=== PATIENT | female | born 1985 | race Hispanic/Latino ===

== ENCOUNTER 2021-05-04 21:14 | Emergency (ER) | payer SELFPAY ==
[2021-05-04 21:41] VITALS: BP 128/74
--- NOTE | 2021-05-04 22:00 | Emergency Department Report ---
- General Chief complaint: Skin Rash Stated complaint: RASH Time Seen by Provider: 05/04/21 21:56 Source: patient Mode of arrival: Ambulatory Limitations: No Limitations - History of Present Illness Initial comments: Patient is a 35-year-old female presents emergency with complaints of a rash underneath her right nostril that began a couple days ago. She states she is not sure if the mask is rubbing it. She states that she has been rubbing it and making it more irritated. She states that she has been crusting. She denies a rash anywhere else. She denies any fever, nausea, vomiting, diarrhea, any other symptoms. Past medical history of asthma, diabetes. She has an allergy to penicillin, iodine, zolpidem. - Related Data Previous Rx's Medication Instructions Recorded Last Taken Type Mupirocin [Bactroban 2% OINT] 1 applic TP TID #1 tube 05/04/21 Unknown Rx Allergies Allergy/AdvReac Type Severity Reaction Status Date / Time iodine Allergy Unknown Verified 05/04/21 21:37 Penicillins Allergy Unknown Verified 05/04/21 21:37 zolpidem [From Ambien] Allergy Unknown Verified 05/04/21 21:37 Abscess Boil HPI - HPI Chief Complaint: Skin Rash Stated Complaint: RASH Time Seen by Provider: 05/04/21 21:56 Home Medications: Previous Rx's Medication Instructions Recorded Last Taken Type Mupirocin [Bactroban 2% OINT] 1 applic TP TID #1 tube 05/04/21 Unknown Rx Allergies/Adverse Reactions: Allergies Allergy/AdvReac Type Severity Reaction Status Date / Time iodine Allergy Unknown Verified 05/04/21 21:37 Penicillins Allergy Unknown Verified 05/04/21 21:37 zolpidem [From Ambien] Allergy Unknown Verified 05/04/21 21:37 ED Review of Systems ROS: Stated complaint: RASH Other details as noted in HPI Comment: All other systems reviewed and negative ED Past Medical Hx - Past Medical History Previous Medical History?: Yes Hx Diabetes: Yes Hx of Cancer: Yes (breast and uterine) Hx Asthma: Yes - Surgical History Past Surgical History?: Yes - Social History Smoking Status: Never Smoker Substance Use Type: None - Medications Home Medications: Home Medications Medication Instructions Recorded Confirmed Last Taken Type Mupirocin [Bactroban 2% OINT] 1 applic TP TID #1 tube 05/04/21 Unknown Rx ED Physical Exam - General Limitations: No Limitations General appearance: alert, in no apparent distress - Head Head exam: Present: atraumatic, normocephalic - Eye Eye exam: Present: normal appearance - ENT ENT exam: Present: mucous membranes moist, other (there is scabbing with crusting present at the opening of the right naris and just inferior, no induration, no pustules, no necrosis ) - Respiratory Respiratory exam: Absent: respiratory distress, accessory muscle use - Neurological Exam Neurological exam: Present: alert, oriented X3 - Psychiatric Psychiatric exam: Present: normal affect, normal mood - Skin Skin exam: Present: warm, dry ED Course Vital Signs 05/04/21 21:38 Temperature 98.3 F Pulse Rate 95 H Respiratory 18 Rate Blood Pressure 128/74 O2 Sat by Pulse 97 Oximetry ED Medical Decision Making - Medical Decision Making Patient is a 35-year-old female presents emergency with complaints of a rash underneath her right nostril that began a couple days ago. She states she is not sure if the mask is rubbing it. She states that she has been rubbing it and making it more irritated. She states that she has been crusting. She denies a rash anywhere else. She denies any fever, nausea, vomiting, diarrhea, any other symptoms. Past medical history of asthma, diabetes. She has an allergy to penicillin, iodine, zolpidem. Vitals are normal. On exam:there is scabbing with crusting present at the opening of the right naris and just inferior, no induration, no pustules, no necrosis. Examination appears likely consistent with impetigo. No surrounding cellulitis. Patient given prescription for mupirocin. Advised patient Please use medication as prescribed. Please stop scratching. Follow-up the primary care doctor. Return to emergency room for any new or worsening symptoms. Critical care attestation.: If time is entered above; I have spent that time in minutes in the direct care of this critically ill patient, excluding procedure time. ED Disposition Clinical Impression: Rash Disposition: 01 HOME / SELF CARE / HOMELESS Is pt being admited?: No Does the pt Need Aspirin: No Condition: Stable Instructions: Impetigo, Adult Additional Instructions: Please use medication as prescribed. Please stop scratching. Follow-up the primary care doctor. Return to emergency room for any new or worsening symptoms. Prescriptions: Mupirocin [Bactroban 2% OINT] 1 applic TP TID #1 tube Referrals: JADYN ROSADO MD [Staff Physician] - 2-3 Days [facility] [Provider Group] - 2-3 Days Time of Disposition: 21:59 Print Language: COMORAN
== END 2021-05-04 22:32 | disposition home or self-care (01) ==
LOC: ED 21:14
DX: R21 Rash and other nonspecific skin eruption (principal); E11.9 Type 2 diabetes mellitus without complications; J45.909 Unspecified asthma, uncomplicated; Z88.0 Allergy status to penicillin; Z88.6 Allergy status to analgesic agent; Z88.8 Allergy status to other drugs, medicaments and biological substances; Z79.899 Other long term (current) drug therapy
CPT/HCPCS: 99281

== ENCOUNTER 2021-10-31 00:35 | Emergency (ER) | payer MEDICAID, OTHER ==
[2021-10-31] MEDS ORDERED: IPRATROPIUM/ALBUTEROL SULFATE 3 ML AMPUL.NEB IH ONE (01:05)
[2021-10-31] MEDS ORDERED: methylPREDNISolone Sod Succinate 125 MG/2 ML INJ IM ONE (01:13)
--- NOTE | 2021-10-31 02:02 | XRay Report ---
CHEST 1 VIEW INDICATION / CLINICAL INFORMATION: DYSPNEA, ASTHMA. COMPARISON: None available. FINDINGS: SUPPORT DEVICES: None. HEART / MEDIASTINUM: No significant abnormality. LUNGS / PLEURA: Minimal hyperexpansion suggested. No focal consolidation. No pneumothorax. ADDITIONAL FINDINGS: Minimal dextroscoliosis apex at T7. IMPRESSION: 1. No focal consolidation. Hyperexpansion thought to be compatible with known history of asthma. Signer Name: Seven Andujar II, MD Signed: 10/31/2021 1:58 AM Workstation Name: [id number]
[2021-10-31 02:17] VITALS: BP 116/71
--- NOTE | 2021-10-31 02:20 | Emergency Department Report ---
ED Shortness of Breath HPI - General Chief Complaint: Adult Asthma Stated Complaint: ASTHMA ATTACK X3DAYS Source: patient Mode of arrival: Ambulatory Limitations: Physical Limitation - History of Present Illness Initial Comments: Patient is a 36-year-old female with a history of asthma and diabetes who presents to the ED with complaint of acute onset persistent shortness of breath, wheezing, chest tightness, nasal and sinus congestion and persistent dry cough for the last 1 week, worse in the last 3 days. Patient states that she has been using her albuterol inhaler at home with no relief. Patient denies dizziness, syncope, chest pain, nausea and vomiting, fever, chills, abdominal pain, diarrhea, dysuria, urinary frequency and urgency, headache, neck pain, ch gildardo in vision or sore throat. MD Complaint: shortness of breath, cough, "asthma attack" -: Sudden, week(s) (1) Severity: moderate Pain Scale: 5 Quality: other (Chest tightness) Consistency: intermittent Improves With: bronchodilators Worsens With: exertion, coughing Known History Of: asthma Context: recent URI, allergen exposure Associated Symptoms: cough Treatments Prior to Arrival: bronchodilator - Related Data Home Oxygen Therapy: No Home Medications Medication Instructions Recorded Confirmed Last Taken Fluticasone (Nf) [Flovent 220 2 puff IH BID 10/31/21 10/31/21 1 Day Ago MCG/PUFF HFA] ~10/30/21 Previous Rx's Medication Instructions Recorded Last Taken Type ALBUTEROL NEB's [Proventil 0.083% 3 ml IH Q6H PRN #75 ml 10/31/21 Unknown Rx NEBS] Albuterol Sulfate [Proair 1 - 2 puff IH Q4HR PRN #1 inh 10/31/21 Unknown Rx Digihaler] Benzonatate [Tessalon Perles] 100 mg PO Q8HR #30 cap 10/31/21 Unknown Rx Mometasone/Formoterol [Dulera 200 2 puff INHALATION Q12H PRN #1 inh 10/31/21 Unknown Rx Mcg-5 Mcg Inhaler] Montelukast [Singulair] 10 mg PO QPM #30 tablet 10/31/21 Unknown Rx Nebulizer Accessories [Adult 1 each MC Q6H PRN #1 each 10/31/21 Unknown Rx Aerosol Mask] Nebulizer Accessories [Mouthpiece] 1 each MC Q6H PRN #1 each 10/31/21 Unknown Rx Nebulizer Accessories [Sootheneb 1 each MC Q6H PRN #1 each 10/31/21 Unknown Rx [id number] Med Cup] Nebulizer and Compressor 1 each MC Q6H PRN #1 each 10/31/21 Unknown Rx [Compressor Nebulizer System] Prednisone [predniSONE 10 mg 10 mg PO .TAPER #1 tab 10/31/21 Unknown Rx (6-Day Pack, 21 Tabs)] Allergies Allergy/AdvReac Type Severity Reaction Status Date / Time iodine Allergy Hives Verified 10/31/21 01:11 morphine Allergy Angioedema Verified 10/31/21 01:11 Penicillins Allergy Shortness Verified 10/31/21 01:11 of Breath zolpidem [From Ambien] Allergy Hallucinati Verified 10/31/21 01:11 ons ED Review of Systems ROS: Stated complaint: ASTHMA ATTACK X3DAYS Other details as noted in HPI Constitutional: denies: chills, fever Eyes: denies: eye pain, eye discharge, vision change ENT: congestion. denies: ear pain, throat pain Respiratory: cough, shortness of breath, wheezing Cardiovascular: denies: chest pain, palpitations Endocrine: no symptoms reported Gastrointestinal: denies: abdominal pain, nausea, diarrhea Genitourinary: denies: urgency, dysuria, discharge Musculoskeletal: denies: back pain, joint swelling, arthralgia Skin: denies: rash, lesions Neurological: denies: headache, weakness, paresthesias Psychiatric: denies: anxiety, depression Hematological/Lymphatic: denies: easy bleeding, easy bruising ED Past Medical Hx - Past Medical History Hx Diabetes: Yes Hx Asthma: Yes - Social History Smoking Status: Never Smoker Substance Use Type: None - Medications Home Medications: Home Medications Medication Instructions Recorded Confirmed Last Taken Type ALBUTEROL NEB's [Proventil 0.083% 3 ml IH Q6H PRN #75 ml 10/31/21 Unknown Rx NEBS] Albuterol Sulfate [Proair 1 - 2 puff IH Q4HR PRN #1 inh 10/31/21 Unknown Rx Digihaler] Benzonatate [Tessalon Perles] 100 mg PO Q8HR #30 cap 10/31/21 Unknown Rx Fluticasone (Nf) [Flovent 220 2 puff IH BID 10/31/21 10/31/21 1 Day Ago History MCG/PUFF HFA] ~10/30/21 Mometasone/Formoterol [Dulera 200 2 puff INHALATION Q12H PRN #1 inh 10/31/21 Unknown Rx Mcg-5 Mcg Inhaler] Montelukast [Singulair] 10 mg PO QPM #30 tablet 10/31/21 Unknown Rx Nebulizer Accessories [Adult 1 each MC Q6H PRN #1 each 10/31/21 Unknown Rx Aerosol Mask] Nebulizer Accessories [Mouthpiece] 1 each MC Q6H PRN #1 each 10/31/21 Unknown Rx Nebulizer Accessories [Sootheneb 1 each MC Q6H PRN #1 each 10/31/21 Unknown Rx [id number] Med Cup] Nebulizer and Compressor 1 each MC Q6H PRN #1 each 10/31/21 Unknown Rx [Compressor Nebulizer System] Prednisone [predniSONE 10 mg 10 mg PO .TAPER #1 tab 10/31/21 Unknown Rx (6-Day Pack, 21 Tabs)] ED Physical Exam - General Limitations: Physical Limitation General appearance: alert, in no apparent distress - Head Head exam: Present: atraumatic, normocephalic, normal inspection - Eye Eye exam: Present: normal appearance, PERRL, EOMI Pupils: Present: normal accommodation - ENT ENT exam: Present: normal orophraynx, mucous membranes moist, TM's normal bilaterally, normal external ear exam, other (Grossly congested nasal passages) - Neck Neck exam: Present: normal inspection, full ROM. Absent: tenderness, lymphadenopathy - Respiratory Respiratory exam: Present: wheezes (Mildly diffuse coarse wheezes throughout). Absent: normal lung sounds bilaterally, respiratory distress, rales, rhonchi, chest wall tenderness, accessory muscle use, decreased breath sounds - Cardiovascular Cardiovascular Exam: Present: normal rhythm, tachycardia, normal heart sounds. Absent: systolic murmur, diastolic murmur, rubs, gallop - GI/Abdominal GI/Abdominal exam: Present: soft, normal bowel sounds. Absent: tenderness, guarding, rebound, hyperactive bowel sounds, hypoactive bowel sounds, organomegaly - Extremities Exam Extremities exam: Present: normal inspection, full ROM, normal capillary refill - Back Exam Back exam: Present: normal inspection, full ROM. Absent: tenderness, CVA tenderness (R), CVA tenderness (L), muscle spasm, paraspinal tenderness, vertebral tenderness - Neurological Exam Neurological exam: Present: alert, oriented X3, CN II-XII intact, normal gait, reflexes normal - Psychiatric Psychiatric exam: Present: normal affect, normal mood - Skin Skin exam: Present: warm, dry, intact, normal color. Absent: rash ED Medical Decision Making - Radiology Data Radiology results: report reviewed, image reviewed [facility] [address] [place] [address] XRay Report Signed Patient: CRISTINA THOMAS MR#: [id number] [birth year] : 1985 Acct:[id number] Age/Sex: 36 / F ADM Date: 10/31/21 Loc: ED Attending Dr: Ordering Physician: MARY LEVIN Date of Service: 10/31/21 Procedure(s): XR chest 1V ap Accession Number(s): [id number] cc: MARY LEVIN Fluoro Time In Minutes: CHEST 1 VIEW INDICATION / CLINICAL INFORMATION: DYSPNEA, ASTHMA. COMPARISON: None available. FINDINGS: SUPPORT DEVICES: None. HEART / MEDIASTINUM: No significant abnormality. LUNGS / PLEURA: Minimal hyperexpansion suggested. No focal consolidation. No pneumothorax. ADDITIONAL FINDINGS: Minimal dextroscoliosis apex at T7. IMPRESSION: 1. No focal consolidation. Hyperexpansion thought to be compatible with known history of asthma. Signer Name: Wes Wolf II, MD Signed: 10/31/2021 1:58 AM Workstation Name: [id number] Transcribed By: KIERA Dictated By: WES WOLF II, MD Electronically Authenticated By: WES WOLF II, MD Signed Date/Time: 10/31/21 015 DD/ 5 TD/TT: - Medical Decision Making This is a 36-year-old female with a history of asthma and diabetes who presents to the ED with complaint of acute onset persistent shortness of breath, wheezing, chest tightness, nasal and sinus congestion and persistent dry cough for the last 1 week, worse in the last 3 days. Patient states that she has been using her albuterol inhaler at home with no relief. In the ED, patient is alert and oriented x3 and is not in any distress. Patient is afebrile but tachycardic in triage having used her albuterol inhaler prior to arrival in the ED. Chest x-ray showed no acute cardiopulmonary abnormalities or pneumonitis. Patient was treated in the ED with DuoNeb and Solu-Medrol 125 mg intramuscular injection. On reevaluation, patient's wheezing resolved patient felt better, patient is hemodynamically stable with oxygen saturation of 100% on room air. Patient was discharged home on medications and advised to follow-up with her primary care physician in 3 to 5 days for reevaluation or return to the ED immediately if symptoms get worse. - Differential Diagnosis Asthma; bronchitis; pneumonia; URI; Critical care attestation.: If time is entered above; I have spent that time in minutes in the direct care of this critically ill patient, excluding procedure time. ED Disposition Clinical Impression: Acute bronchitis with asthma with acute exacerbation, Shortness of breath Disposition: 01 HOME / SELF CARE / HOMELESS Is pt being admited?: No Does the pt Need Aspirin: No Condition: Stable Instructions: Shortness of Breath, Adult, Guqm-wp-Hmtc, Cough, Adult, Ueci-fk-Htds, Acute Bronchitis, Adult, Pigg-uz-Ffzz, Asthma, Adult, Hxzw-as-Post Additional Instructions: Chest x-ray showed no acute cardiopulmonary abnormalities or pneumonitis. Therefore take medications with food, drink plenty of fluids and follow-up with your primary care physician in 3 to 5 days for reevaluation. Return to the ED immediately if symptoms get worse. Prescriptions: Nebulizer Accessories [Adult Aerosol Mask] 1 each MC Q6H PRN #1 each PRN Reason: Dyspnea Nebulizer and Compressor [Compressor Nebulizer System] 1 each MC Q6H PRN #1 each PRN Reason: Wheezing Mometasone/Formoterol [Dulera 200 Mcg-5 Mcg Inhaler] 2 puff INHALATION Q12H PRN #1 inh PRN Reason: Dyspnea Nebulizer Accessories [Mouthpiece] 1 each MC Q6H PRN #1 each PRN Reason: Dyspnea Prednisone [predniSONE 10 mg (6-Day Pack, 21 Tabs)] 10 mg PO .TAPER #1 tab Albuterol Sulfate [Proair Digihaler] 1 - 2 puff IH Q4HR PRN #1 inh PRN Reason: Dyspnea ALBUTEROL NEB's [Proventil 0.083% NEBS] 3 ml IH Q6H PRN #75 ml PRN Reason: Wheezing Montelukast [Singulair] 10 mg PO QPM #30 tablet Nebulizer Accessories [Sootheneb [id number] Med Cup] 1 each MC Q6H PRN #1 each PRN Reason: Dyspnea Benzonatate [Tessalon Perles] 100 mg PO Q8HR #30 cap Referrals: JADYN ROSADO MD [Staff Physician] - 3-5 Days Time of Disposition: 02:21 Print Language: ANGOLAN
== END 2021-10-31 03:23 | disposition home or self-care (01) ==
LOC: ED 00:35
DX: J45.901 Unspecified asthma with (acute) exacerbation (principal); E11.9 Type 2 diabetes mellitus without complications; Z79.899 Other long term (current) drug therapy
CPT/HCPCS: 71045; 94640; 96372; 99283; J2930; 94644

== ENCOUNTER 2021-11-03 00:15 | Emergency (ER) | payer SELFPAY ==
[2021-11-03 00:20] VITALS: BP 112/75
[2021-11-03] MEDS ORDERED: HYDROcodone/ACETAMINOPHEN 5-325 MG TAB PO STA (03:30)
--- NOTE | 2021-11-03 04:22 | XRay Report ---
CHEST 2 VIEWS INDICATION / CLINICAL INFORMATION: Right-sided chest pain.. COMPARISON: None available. FINDINGS: SUPPORT DEVICES: None. HEART / MEDIASTINUM: No significant abnormality. LUNGS / PLEURA: No significant pulmonary or pleural abnormality. No pneumothorax. ADDITIONAL FINDINGS: Stable mild dextroscoliosis. Minimal pectus deformity. IMPRESSION: 1. No active cardiopulmonary disease. Signer Name: Seven Andujar II, MD Signed: 11/03/2021 4:18 AM Workstation Name: [id number]
--- NOTE | 2021-11-03 04:31 | Emergency Department Report ---
Minor Respiratory - HPI Chief Complaint: Adult Asthma Stated Complaint: ASTHMA Time Seen by Provider: 11/03/21 03:29 Duration: 5 Days Pain Location: Chest Severity: moderate Minor Respiratory: Yes Cough, Yes Chest Pain, No Rhinorrhea, No Able to Tolerate Fluids, No Ear Pain, No Fever Other History: 36-year-old female smoker presents emerged part with complaint of 5-day history of productive cough with congestion and right rib pain of unknown etiology. Ports no fever, chills, sweats. No nausea, no vomiting ED Review of Systems ROS: Stated complaint: ASTHMA Other details as noted in HPI Comment: All other systems reviewed and negative ED Past Medical Hx - Past Medical History Hx Diabetes: Yes Hx Asthma: Yes - Social History Smoking Status: Never Smoker Substance Use Type: None - Medications Home Medications: Home Medications Medication Instructions Recorded Confirmed Last Taken Type ALBUTEROL NEB's [Proventil 0.083% 3 ml IH Q6H PRN #75 ml 10/31/21 Unknown Rx NEBS] Albuterol Sulfate [Proair 1 - 2 puff IH Q4HR PRN #1 inh 10/31/21 Unknown Rx Digihaler] Benzonatate [Tessalon Perles] 100 mg PO Q8HR #30 cap 10/31/21 Unknown Rx Fluticasone (Nf) [Flovent 220 2 puff IH BID 10/31/21 10/31/21 1 Day Ago History MCG/PUFF HFA] ~10/30/21 Mometasone/Formoterol [Dulera 200 2 puff INHALATION Q12H PRN #1 inh 10/31/21 Unknown Rx Mcg-5 Mcg Inhaler] Montelukast [Singulair] 10 mg PO QPM #30 tablet 10/31/21 Unknown Rx Nebulizer Accessories [Adult 1 each MC Q6H PRN #1 each 10/31/21 Unknown Rx Aerosol Mask] Nebulizer Accessories [Mouthpiece] 1 each MC Q6H PRN #1 each 10/31/21 Unknown Rx Nebulizer Accessories [Sootheneb 1 each MC Q6H PRN #1 each 10/31/21 Unknown Rx [id number] Med Cup] Nebulizer and Compressor 1 each MC Q6H PRN #1 each 10/31/21 Unknown Rx [Compressor Nebulizer System] Prednisone [predniSONE 10 mg 10 mg PO .TAPER #1 tab 03/07/22 Unknown Rx (6-Day Pack, 21 Tabs)] Albuterol Mdi (or & Nicu Only) 2 puff IH QID PRN #1 inhalation 11/03/21 Unknown Rx [ProAir HFA Inhaler] Montelukast [Singulair] 10 mg PO QPM #14 tablet 11/03/21 Unknown Rx predniSONE [Deltasone] 50 mg PO QDAY #5 tab 11/03/21 Unknown Rx Minor Respiratory Exam - Exam General: Vital signs noted. No distress. Alert and acting appropriately. HEENT: Yes Moist Mucous Membranes, No Pharyngeal Erythema, No Pharyngeal Exudates, No Rhinorrhea, No Conjuctival Injection, No Frontal Tenderness, No Maxillary Tenderness Ear: Neither TM Bulge, Neither TM Erythema, Neither EAC Pain, Neither EAC Discharge Neck: Yes Supple, No Adenopathy Lungs: Yes Good Air Exchange, Yes Ronchi, No Wheezes, No Stridor, No Cough, No Labored Respirations, No Retractions, No Use of Accessory Muscles, No Other Abnormal Lung Sounds Heart: Yes Regular, No Murmur Abdomen: Yes Normal Bowel Sounds, No Tenderness, No Peritoneal Signs Skin: No Rash, No Edema Neurologic: Alert and oriented, no deficits. Musculoskeletal: Unremarkable. ED Course Vital Signs 11/03/21 11/03/21 00:19 03:48 Temperature 98.3 F Pulse Rate 117 H Respiratory 16 16 Rate Blood Pressure 112/75 O2 Sat by Pulse 97 Oximetry ED Medical Decision Making - Radiology Data Radiology results: report reviewed Other Patient ID My Comment(s) Study Comments [facility] [address] [place] [address] XRay Report Signed Patient: CRISTINA THOMAS MR#: [id number] 08 : 1985 Acct:[id number] Age/Sex: 36 / F ADM Date: 11/03/21 Loc: ED Attending Dr: Ordering Physician: MARY RODRIGUEZ Date of Service: 11/03/21 Procedure(s): XR chest routine 2V Accession Number(s): [id number] cc: MARY RODRIGUEZ Fluoro Time In Minutes: CHEST 2 VIEWS INDICATION / CLINICAL INFORMATION: Right-sided chest pain.. COMPARISON: None available. FINDINGS: SUPPORT DEVICES: None. HEART / MEDIASTINUM: No significant abnormality. LUNGS / PLEURA: No significant pulmonary or pleural abnormality. No pneumothorax. ADDITIONAL FINDINGS: Stable mild dextroscoliosis. Minimal pectus deformity. IMPRESSION: 1. No active cardiopulmonary disease. Signer Name: Wes Wolf II, MD Signed: 11/03/2021 4:18 AM Workstation Name: [id number] Transcribed By: KIERA Dictated By: WES WOLF II, MD Electronically Authenticated By: WES WOLF II, MD Signed Date/Time: 11/03/21417 DD/ 2 TD/TT: - Medical Decision Making This patient presents with chest pain that is very unlikely angina or acute coronary syndrome. The emergency department evaluation has not identified any cause for suspicion that this chest pain has a cardiac etiology. Based on their history, EKG (which showed no evidence of ischemia or infarction) and imaging, in addition to the patient's physical exam, I see no evidence at this time for a malignant etiology for the patient's chest pain. There is no acute evidence for pulmonary embolus, acute myocardial infarction, pneumothorax, Boerhaeve syndrome, cardiac tamponade, thoracic artery dissection, or any other emergent c ardiac, pulmonary or aortic pathology. Given the low pre-test probability for cardiac etiology of chest pain and the absence of any sign of ischemia or infarction, discharge for outpatient follow-up and further evaluation is reasonable. I have explained to the patient that even though a cardiac problem is very unlikely, follow-up and further testing is required to reduce further the already small uncertainty that exists. Other life-threatening diagnoses have been considered. The patient understands the need to return immediately if their symptoms worsen or they develop any new symptoms, and not to engage in any significant exertional activity until follow-up is obtained. Critical care attestation.: If time is entered above; I have spent that time in minutes in the direct care of this critically ill patient, excluding procedure time. ED Disposition Clinical Impression: Chest pain, Asthma Disposition: HOME / SELF CARE / HOMELESS Is pt being admited?: No Does the pt Need Aspirin: No (sa) Condition: Stable Instructions: Nonspecific Chest Pain, Adult, Asthma (ED), Asthma, Adult Referrals: JADYN ROSADO MD [Primary Care Provider] - 3-5 Days
--- NOTE | 2021-11-04 09:14 | Electrocardiograph Report ---
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
== END 2021-11-03 05:09 | disposition home or self-care (01) ==
LOC: ED 00:15
DX: J45.909 Unspecified asthma, uncomplicated (principal); R07.9 Chest pain, unspecified; E11.9 Type 2 diabetes mellitus without complications
CPT/HCPCS: 71046; 93005; 99283

== ENCOUNTER 2021-11-15 20:19 | Emergency (ER) | payer MEDICAID ==
[2021-11-15 20:46] VITALS: BP 105/63
--- NOTE | 2021-11-16 01:44 | Emergency Department Report ---
ED Laceration HPI - HPI Chief Complaint: Chest Pain Stated Complaint: CHEST PAIN,SHOULDER/BACK/ARM PAIN Time Seen by Provider: 11/16/21 00:57 ED Review of Systems ROS: Stated complaint: CHEST PAIN,SHOULDER/BACK/ARM PAIN Other details as noted in HPI Comment: All other systems reviewed and negative ED Past Medical Hx - Past Medical History Hx Diabetes: Yes Hx Asthma: Yes - Social History Smoking Status: Never Smoker Substance Use Type: None - Medications Home Medications: Home Medications Medication Instructions Recorded Confirmed Last Taken Type ALBUTEROL NEB's [Proventil 0.083% 3 ml IH Q6H PRN #75 ml 10/31/21 Unknown Rx NEBS] Albuterol Sulfate [Proair 1 - 2 puff IH Q4HR PRN #1 inh 10/31/21 Unknown Rx Digihaler] Benzonatate [Tessalon Perles] 100 mg PO Q8HR #30 cap 10/31/21 Unknown Rx Fluticasone (Nf) [Flovent 220 2 puff IH BID 10/31/21 10/31/21 1 Day Ago History MCG/PUFF HFA] ~10/30/21 Mometasone/Formoterol [Dulera 200 2 puff INHALATION Q12H PRN #1 inh 10/31/21 Unknown Rx Mcg-5 Mcg Inhaler] Montelukast [Singulair] 10 mg PO QPM #30 tablet 10/31/21 Unknown Rx Nebulizer Accessories [Adult 1 each MC Q6H PRN #1 each 10/31/21 Unknown Rx Aerosol Mask] Nebulizer Accessories [Mouthpiece] 1 each MC Q6H PRN #1 each 10/31/21 Unknown Rx Nebulizer Accessories [Sootheneb 1 each MC Q6H PRN #1 each 10/31/21 Unknown Rx [id number] Med Cup] Nebulizer and Compressor 1 each MC Q6H PRN #1 each 10/31/21 Unknown Rx [Compressor Nebulizer System] Prednisone [predniSONE 10 mg 10 mg PO .TAPER #1 tab 10/31/21 Unknown Rx (6-Day Pack, 21 Tabs)] Albuterol Mdi (or & Nicu Only) 2 puff IH QID PRN #1 inhalation 11/03/21 Unknown Rx [ProAir HFA Inhaler] Montelukast [Singulair] 10 mg PO QPM #14 tablet 11/03/21 Unknown Rx predniSONE [Deltasone] 50 mg PO QDAY #5 tab 11/03/21 Unknown Rx Laceration Physical Exam - Exam General: Vital signs noted. No distress. Alert and acting appropriately. Full Body Front + Back: 1 - Less than 1 cm laceration to the left face lip region Laceration Exam: Yes Normal Distal CMS, No Foreign Body, No Exposed Tendon, Vessel, or Nerve, No Tendon Injury ED Course Vital Signs 11/15/21 20:45 Temperature 98.4 F Pulse Rate 89 Respiratory 18 Rate Blood Pressure 105/63 O2 Sat by Pulse 99 Oximetry Critical care attestation.: If time is entered above; I have spent that time in minutes in the direct care of this critically ill patient, excluding procedure time. ED Disposition Condition: Stable Referrals: PRIMARY CARE, [Primary Care Provider] - 3-5 Days
--- NOTE | 2021-11-16 03:10 | XRay Report ---
CHEST 2 VIEWS INDICATION / CLINICAL INFORMATION: Chest Pain. COMPARISON: 11/03/21. FINDINGS: SUPPORT DEVICES: None. HEART / MEDIASTINUM: The heart size and pulmonary vasculature are normal. The aorta is normal in evan theresa. LUNGS / PLEURA: No significant pulmonary or pleural abnormality. No pneumothorax. ADDITIONAL FINDINGS: There is mild thoracolumbar scoliosis. IMPRESSION: No acute abnormality or significant change. Signer Name: Prakash Najera MD Signed: 11/16/2021 3:06 AM Workstation Name: [id number]
[2021-11-16 04:15] LABS: Basophils # (Auto) 0.1 K/mm3 (0.0-0.1); Basophils % (Auto) 0.5 % (0.0-1.8); Eosinophils # (Auto) 0.2 K/mm3 (0.0-0.4); Eosinophils % (Auto) 1.4 % (0.0-4.3); Hematocrit 39.3 % (30.3-42.9); Hemoglobin 12.7 gm/dl (10.1-14.3); Lymphocytes # (Auto) 2.2 K/mm3 (1.2-5.4); Lymphocytes % (Auto) 19.4 % (13.4-35.0); Mean Corpuscular HGB Conc 32 % (30-34); Mean Corpuscular Volume 91 fl (79-97); Monocytes # (Auto) 0.9 K/mm3 (0.0-0.8); Monocytes % (Auto) 7.6 % (0.0-7.3); Platelet Count 168 K/mm3 (140-440); Red Blood Count 4.29 M/mm3 (3.65-5.03)
[2021-11-16 04:34] LABS: Alanine Aminotransferase 7 units/L (7-56); Albumin 4.1 g/dL (3.9-5); Blood Urea Nitrogen 5 mg/dL (7-17); Calcium 8.8 mg/dL (8.4-10.2); Hemolysis Index 5
[2021-11-16 04:45] LABS: BUN/Creatinine Ratio 10
--- NOTE | 2021-11-16 06:00 | Emergency Department Report ---
ED General Adult HPI - General Chief complaint: Chest Pain Stated complaint: CHEST PAIN,SHOULDER/BACK/ARM PAIN Time Seen by Provider: 11/16/21 00:57 Source: patient Mode of arrival: Ambulatory Limitations: No Limitations - History of Present Illness Initial comments: 36-year-old female presents emerge department complaining of a few day history of chest pain that radiates through to her back associated with tingling on her arms and occasional shortness of breath. She reports no hemoptysis symptoms hematochezia, no fever, chills, sweats. No nausea, no vomiting, no trauma. She reports no foreign travel, no swelling to her lower extremities she reports no diarrhea or constipation no known sick contacts. -: Gradual Location: chest Radiation: non-radiation Quality: dull, other (Chest pain really started out as a heavy pressure across the chest and then grew to aches and now sharp pain that radiates through to her back up and down the spine) Consistency: constant Improves with: none Worsens with: movement Associated Symptoms: chest pain. denies: loss of appetite, nausea/vomiting, shortness of breath Treatments Prior to Arrival: none - Related Data Home Medications Medication Instructions Recorded Confirmed Last Taken Fluticasone (Nf) [Flovent 220 2 puff IH BID 10/31/21 10/31/21 1 Day Ago MCG/PUFF HFA] ~10/30/21 Previous Rx's Medication Instructions Recorded Last Taken Type ALBUTEROL NEB's [Proventil 0.083% 3 ml IH Q6H PRN #75 ml 10/31/21 Unknown Rx NEBS] Albuterol Sulfate [Proair 1 - 2 puff IH Q4HR PRN #1 inh 10/31/21 Unknown Rx Digihaler] Benzonatate [Tessalon Perles] 100 mg PO Q8HR #30 cap 10/31/21 Unknown Rx Mometasone/Formoterol [Dulera 200 2 puff INHALATION Q12H PRN #1 inh 10/31/21 Unknown Rx Mcg-5 Mcg Inhaler] Montelukast [Singulair] 10 mg PO QPM #30 tablet 10/31/21 Unknown Rx Nebulizer Accessories [Adult 1 each MC Q6H PRN #1 each 10/31/21 Unknown Rx Aerosol Mask] Nebulizer Accessories [Mouthpiece] 1 each MC Q6H PRN #1 each 10/31/21 Unknown Rx Nebulizer Accessories [Sootheneb 1 each MC Q6H PRN #1 each 10/31/21 Unknown Rx [id number] Med Cup] Nebulizer and Compressor 1 each MC Q6H PRN #1 each 10/31/21 Unknown Rx [Compressor Nebulizer System] Prednisone [predniSONE 10 mg 10 mg PO .TAPER #1 tab 10/31/21 Unknown Rx (6-Day Pack, 21 Tabs)] Albuterol Mdi (or & Nicu Only) 2 puff IH QID PRN #1 inhalation 11/03/21 Unknown Rx [ProAir HFA Inhaler] Montelukast [Singulair] 10 mg PO QPM #14 tablet 11/03/21 Unknown Rx predniSONE [Deltasone] 50 mg PO QDAY #5 tab 11/03/21 Unknown Rx Allergies Allergy/AdvReac Type Severity Reaction Status Date / Time iodine Allergy Hives Verified 10/31/21 01:11 morphine Allergy Angioedema Verified 10/31/21 01:11 Penicillins Allergy Shortness Verified 10/31/21 01:11 of Breath zolpidem [From Ambien] Allergy Hallucinati Verified 10/31/21 01:11 ons ED Review of Systems ROS: Stated complaint: CHEST PAIN,SHOULDER/BACK/ARM PAIN Other details as noted in HPI Comment: All other systems reviewed and negative ED Past Medical Hx - Past Medical History Hx Diabetes: Yes Hx Asthma: Yes - Social History Smoking Status: Never Smoker Substance Use Type: None - Medications Home Medications: Home Medications Medication Instructions Recorded Confirmed Last Taken Type ALBUTEROL NEB's [Proventil 0.083% 3 ml IH Q6H PRN #75 ml 10/31/21 Unknown Rx NEBS] Albuterol Sulfate [Proair 1 - 2 puff IH Q4HR PRN #1 inh 10/31/21 Unknown Rx Digihaler] Benzonatate [Tessalon Perles] 100 mg PO Q8HR #30 cap 10/31/21 Unknown Rx Fluticasone (Nf) [Flovent 220 2 puff IH BID 10/31/21 10/31/21 1 Day Ago History MCG/PUFF HFA] ~10/30/21 Mometasone/Formoterol [Dulera 200 2 puff INHALATION Q12H PRN #1 inh 10/31/21 Unknown Rx Mcg-5 Mcg Inhaler] Montelukast [Singulair] 10 mg PO QPM #30 tablet 10/31/21 Unknown Rx Nebulizer Accessories [Adult 1 each MC Q6H PRN #1 each 10/31/21 Unknown Rx Aerosol Mask] Nebulizer Accessories [Mouthpiece] 1 each MC Q6H PRN #1 each 10/31/21 Unknown Rx Nebulizer Accessories [Sootheneb 1 each MC Q6H PRN #1 each 10/31/21 Unknown Rx [id number] Med Cup] Nebulizer and Compressor 1 each MC Q6H PRN #1 each 10/31/21 Unknown Rx [Compressor Nebulizer System] Prednisone [predniSONE 10 mg 10 mg PO .TAPER #1 tab 10/31/21 Unknown Rx (6-Day Pack, 21 Tabs)] Albuterol Mdi (or & Nicu Only) 2 puff IH QID PRN #1 inhalation 11/03/21 Unknown Rx [ProAir HFA Inhaler] Montelukast [Singulair] 10 mg PO QPM #14 tablet 11/03/21 Unknown Rx predniSONE [Deltasone] 50 mg PO QDAY #5 tab 11/03/21 Unknown Rx ED Physical Exam - General Limitations: No Limitations General appearance: alert, in no apparent distress - Head Head exam: Present: atraumatic, normocephalic - Eye Eye exam: Present: normal appearance, PERRL, EOMI Pupils: Present: normal accommodation - ENT ENT exam: Present: normal exam, mucous membranes moist - Neck Neck exam: Present: normal inspection, full ROM - Respiratory Respiratory exam: Present: normal lung sounds bilaterally. Absent: respiratory distress - Cardiovascular Cardiovascular Exam: Present: regular rate, normal rhythm. Absent: systolic murmur, diastolic murmur, rubs, gallop - GI/Abdominal GI/Abdominal exam: Present: soft, normal bowel sounds - Extremities Exam Extremities exam: Present: normal inspection - Back Exam Back exam: Present: normal inspection - Neurological Exam Neurological exam: Present: alert, oriented X3 - Psychiatric Psychiatric exam: Present: normal affect, normal mood - Skin Skin exam: Present: warm, dry, intact, normal color. Absent: rash ED Course Vital Signs 11/15/21 20:45 Temperature 98.4 F Pulse Rate 89 Respiratory 18 Rate Blood Pressure 105/63 O2 Sat by Pulse 99 Oximetry ED Medical Decision Making - Lab Data Result diagrams: 11/16/21 03:57 11/16/21 03:57 - Radiology Data Radiology results: report reviewed [facility] [address] [place] [address] XRay Report Signed Patient: CRISTINA THOMAS MR#: [id number] 08 : 1985 A cct:[id number] Age/Sex: 36 / F ADM Date: 11/15/21 Loc: ED Attending Dr: Ordering Physician: MARY RODRIGUEZ Date of Service: 11/16/21 Procedure(s): XR chest routine 2V Accession Number(s): [id number] cc: MARY RODRIGUEZ Fluoro Time In Minutes: CHEST 2 VIEWS INDICATION / CLINICAL INFORMATION: Chest Pain. COMPARISON: 11/03/21. FINDINGS: SUPPORT DEVICES: None. HEART / MEDIASTINUM: The heart size and pulmonary vasculature are normal. The aorta is normal in caliber. LUNGS / PLEURA: No significant pulmonary or pleural abnormality. No pneu mothorax. ADDITIONAL FINDINGS: There is mild thoracolumbar scoliosis. IMPRESSION: No acute abnormality or significant change. Signer Name: Prakash Najera MD Signed: 11/16/2021 3:06 AM Workstation Name: [id number] Transcribed By: RT Dictated By: Prakash Najera MD Electronically Authenticated By: Prakash Najera MD Signed Date/Time: 11/16/21 030 DD/ 030 TD/TT: Critical care attestation.: If time is entered above; I have spent that time in minutes in the direct care of this critically ill patient, excluding procedure time. ED Disposition Clinical Impression: Chest pain, Other forms of scoliosis, site unspecified Disposition: 01 HOME / SELF CARE / HOMELESS Is pt being admited?: No Does the pt Need Aspirin: No Condition: Stable Instructions: Nonspecific Chest Pain, Adult Referrals: PRIMARY CARE, [Primary Care Provider] - 3-5 Days JADYN ROSADO MD [Staff Physician] - 3-5 Days
--- NOTE | 2021-11-17 11:21 | Electrocardiograph Report ---
[facility] Test Date: 2021-11-15 Test Time: 20:52:48 Pat Name: CRISTINA THOMAS Department: Room: Gender: F Domestic Maid: EMIL : 1985 Requested By: JIMMY ARRIOLA Order Number: [id number] Reading MD: Carlin Kee Measurements Intervals [place] Rate: 82 P: 77 MT: 130 QRS: 44 QRSD: 100 T: 56 QT: 380 QTc: 443 Interpretive Statements Sinus rhythm Compared to ECG 11/03/2021 00:21:25 Sinus tachycardia no longer present Ventricular premature complex(es) no longer present Electronically Signed On 11-17-2021 11:21:00 EDT by Carlin Kee
== END 2021-11-16 10:27 | disposition home or self-care (01) ==
LOC: ED 20:19
DX: R07.9 Chest pain, unspecified (principal); M41.80 Other forms of scoliosis, site unspecified; J45.909 Unspecified asthma, uncomplicated; E11.9 Type 2 diabetes mellitus without complications; Z91.041 Radiographic dye allergy status; Z88.0 Allergy status to penicillin; Z88.5 Allergy status to narcotic agent
CPT/HCPCS: 36415; 71046; 80053; 83690; 84484; 85025; 93005; 99283

== ENCOUNTER 2021-11-17 21:19 | Emergency (ER) | payer MEDICAID ==
[2021-11-17 22:03] VITALS: BP 107/68
--- NOTE | 2021-11-17 22:34 | XRay Report ---
CHEST 2 VIEWS INDICATION / CLINICAL INFORMATION: CHEST PAIN. COMPARISON: Yesterday. FINDINGS: SUPPORT DEVICES: None. HEART / MEDIASTINUM: The heart size and pulmonary vasculature are normal. The aorta is normal in evan theresa. LUNGS / PLEURA: No significant pulmonary or pleural abnormality. No pneumothorax. ADDITIONAL FINDINGS: There is mild thoracolumbar scoliosis. IMPRESSION: No acute abnormality or significant change since yesterday. Signer Name: Prakash Najera MD Signed: 11/17/2021 10:30 PM Workstation Name: [id number]
[2021-11-17 23:48] LABS: Alanine Aminotransferase 9 units/L (7-56); Albumin 4.5 g/dL (3.9-5); Blood Urea Nitrogen 6 mg/dL (7-17); Calcium 9.5 mg/dL (8.4-10.2); Hemolysis Index 8
[2021-11-18 00:10] LABS: BUN/Creatinine Ratio 12
[2021-11-18 00:17] LABS: Eosinophils # (Auto) 0.1 K/mm3 (0.0-0.4); Eosinophils % (Auto) 1.3 % (0.0-4.3); Monocytes # (Auto) 0.6 K/mm3 (0.0-0.8); Monocytes % (Auto) 7.2 % (0.0-7.3)
[2021-11-18 00:35] LABS: Basophils % (Auto) 0.4 % (0.0-1.8); Hemoglobin 13.9 gm/dl (10.1-14.3); Lymphocytes # (Auto) 1.4 K/mm3 (1.2-5.4); Lymphocytes % (Auto) 18.2 % (13.4-35.0); Mean Corpuscular HGB Conc 33 % (30-34); Mean Corpuscular Volume 91 fl (79-97); Platelet Count 179 K/mm3 (140-440); Red Blood Count 4.59 M/mm3 (3.65-5.03)
[2021-11-18] MEDS ORDERED: IBUPROFEN 800 MG TAB PO ONE (03:18)
--- NOTE | 2021-11-18 03:54 | Emergency Department Report ---
ED Chest Pain HPI - General Chief Complaint: Chest Pain Stated Complaint: SOB/CHEST PAIN/WOKE UP WITH PAIN LEFT ARM Time Seen by Provider: 11/18/21 03:17 Source: patient Mode of arrival: Ambulatory Limitations: No Limitations - History of Present Illness Initial Comments: Patient 36-year-old female with history of asthma who presents for upper chest pain intermittent x3 days patient denies cough fevers or chills there is no wheezing no stridor. There is been no nausea no vomiting no lightheadedness no dizziness. Patient is tolerating p.o. intake there is no nausea or vomiting. Pain described as sharp exacerbated by deep inspiration and movement. Pain is relieved by nothing tried. Patient denies smoking. MD Complaint: chest pain - Related Data Home Medications Medication Instructions Recorded Confirmed Last Taken Fluticasone (Nf) [Flovent 220 2 puff IH BID 10/31/21 10/31/21 1 Day Ago MCG/PUFF HFA] ~10/30/21 Previous Rx's Medication Instructions Recorded Last Taken Type ALBUTEROL NEB's [Proventil 0.083% 3 ml IH Q6H PRN #75 ml 10/31/21 Unknown Rx NEBS] Albuterol Sulfate [Proair 1 - 2 puff IH Q4HR PRN #1 inh 10/31/21 Unknown Rx Digihaler] Benzonatate [Tessalon Perles] 100 mg PO Q8HR #30 cap 10/31/21 Unknown Rx Mometasone/Formoterol [Dulera 200 2 puff INHALATION Q12H PRN #1 inh 10/31/21 Unknown Rx Mcg-5 Mcg Inhaler] Montelukast [Singulair] 10 mg PO QPM #30 tablet 10/31/21 Unknown Rx Nebulizer Accessories [Adult 1 each MC Q6H PRN #1 each 10/31/21 Unknown Rx Aerosol Mask] Nebulizer Accessories [Mouthpiece] 1 each MC Q6H PRN #1 each 10/31/21 Unknown Rx Nebulizer Accessories [Sootheneb 1 each MC Q6H PRN #1 each 10/31/21 Unknown Rx [id number] Med Cup] Nebulizer and Compressor 1 each MC Q6H PRN #1 each 10/31/21 Unknown Rx [Compressor Nebulizer System] Prednisone [predniSONE 10 mg 10 mg PO .TAPER #1 tab 10/31/21 Unknown Rx (6-Day Pack, 21 Tabs)] Albuterol Mdi (or & Nicu Only) 2 puff IH QID PRN #1 inhalation 11/03/21 Unknown Rx [ProAir HFA Inhaler] Montelukast [Singulair] 10 mg PO QPM #14 tablet 11/03/21 Unknown Rx predniSONE [Deltasone] 50 mg PO QDAY #5 tab 11/03/21 Unknown Rx Ibuprofen [Motrin 800 MG tab] 800 mg PO Q8HR PRN #30 tablet 11/18/21 Unknown Rx Allergies Allergy/AdvReac Type Severity Reaction Status Date / Time iodine Allergy Hives Verified 10/31/21 01:11 morphine Allergy Angioedema Verified 10/31/21 01:11 Penicillins Allergy Shortness Verified 10/31/21 01:11 of Breath zolpidem [From Ambien] Allergy Hallucinati Verified 10/31/21 01:11 ons Heart Score - HEART Score History: Slightly suspicious EKG: Normal Age: < 45 Risk factors: No known risk factors Troponin: < normal limit HEART Score: 0 - EKG Read Time Time EKG Completed: 21:00 EKG Read Time: 21:05 ED Review of Systems ROS: Stated complaint: SOB/CHEST PAIN/WOKE UP WITH PAIN LEFT ARM Other details as noted in HPI Constitutional: denies: chills, fever Eyes: denies: eye pain, eye discharge, vision change ENT: denies: ear pain, throat pain Respiratory: denies: cough, shortness of breath, wheezing Cardiovascular: denies: chest pain, palpitations Endocrine: no symptoms reported Gastrointestinal: denies: abdominal pain, nausea, vomiting, diarrhea Genitourinary: denies: urgency, dysuria, frequency, hematuria, discharge Musculoskeletal: other (chest wall tenderness no stepoff , no crepitus , no swelling ,no echymosis). denies: back pain, joint swelling, arthralgia Skin: denies: rash, lesions Neurological: denies: headache, weakness, paresthesias, vertigo Psychiatric: denies: anxiety, depression Hematological/Lymphatic: as per HPI ED Past Medical Hx - Past Medical History Hx Diabetes: Yes Hx Asthma: Yes - Social History Smoking Status: Never Smoker Substance Use Type: None - Medications Home Medications: Home Medications Medication Instructions Recorded Confirmed Last Taken Type ALBUTEROL NEB's [Proventil 0.083% 3 ml IH Q6H PRN #75 ml 10/31/21 Unknown Rx NEBS] Albuterol Sulfate [Proair 1 - 2 puff IH Q4HR PRN #1 inh 10/31/21 Unknown Rx Digihaler] Benzonatate [Tessalon Perles] 100 mg PO Q8HR #30 cap 10/31/21 Unknown Rx Fluticasone (Nf) [Flovent 220 2 puff IH BID 10/31/21 10/31/21 1 Day Ago History MCG/PUFF HFA] ~10/30/21 Mometasone/Formoterol [Dulera 200 2 puff INHALATION Q12H PRN #1 inh 10/31/21 Unknown Rx Mcg-5 Mcg Inhaler] Montelukast [Singulair] 10 mg PO QPM #30 tablet 10/31/21 Unknown Rx Nebulizer Accessories [Adult 1 each MC Q6H PRN #1 each 10/31/21 Unknown Rx Aerosol Mask] Nebulizer Accessories [Mouthpiece] 1 each MC Q6H PRN #1 each 10/31/21 Unknown Rx Nebulizer Accessories [Sootheneb 1 each MC Q6H PRN #1 each 10/31/21 Unknown Rx [id number] Med Cup] Nebulizer and Compressor 1 each MC Q6H PRN #1 each 10/31/21 Unknown Rx [Compressor Nebulizer System] Prednisone [predniSONE 10 mg 10 mg PO .TAPER #1 tab 10/31/21 Unknown Rx (6-Day Pack, 21 Tabs)] Albuterol Mdi (or & Nicu Only) 2 puff IH QID PRN #1 inhalation 11/03/21 Unknown Rx [ProAir HFA Inhaler] Montelukast [Singulair] 10 mg PO QPM #14 tablet 11/03/21 Unknown Rx predniSONE [Deltasone] 50 mg PO QDAY #5 tab 11/03/21 Unknown Rx Ibuprofen [Motrin 800 MG tab] 800 mg PO Q8HR PRN #30 tablet 11/18/21 Unknown Rx ED Physical Exam - General Limitations: No Limitations General appearance: alert, in no apparent distress - Head Head exam: Present: atraumatic, normocephalic - Eye Eye exam: Present: normal appearance, PERRL, EOMI Pupils: Present: normal accommodation - ENT ENT exam: Present: mucous membranes moist - Neck Neck exam: Present: normal inspection, full ROM. Absent: tenderness, meningismus, lymphadenopathy, thyromegaly - Respiratory Respiratory exam: Present: normal lung sounds bilaterally, chest wall tenderness (anterior chest wall ). Absent: respiratory distress, wheezes, rales, rhonchi, stridor - Cardiovascular Cardiovascular Exam: Present: regular rate, normal rhythm, normal heart sounds. Absent: systolic murmur, diastolic murmur, rubs, gallop - GI/Abdominal GI/Abdominal exam: Present: soft, normal bowel sounds. Absent: distended, tenderness, bruit, hernia - Rectal Rectal exam: Present: deferred - Extremities Exam Extremities exam: Present: normal inspection - Back Exam Back exam: Present: normal inspection, full ROM. Absent: CVA tenderness (R), CVA tenderness (L) - Neurological Exam Neurological exam: Present: alert, oriented X3, CN II-XII intact, normal gait, reflexes normal. Absent: motor sensory deficit - Expanded Neurological Exam Expanded Patient oriented to: Present: person, place, time Speech: Present: fluid speech Best Eye Response ([place]): (4) open spontaneously Best Motor Response ([place]): (6) obeys commands Best Verbal Response ([place]): (5) oriented [place] Total: 15 - Psychiatric Psychiatric exam: Present: normal affect, normal mood - Skin Skin exam: Present: warm, dry, intact, normal color. Absent: rash ED Course Vital Signs 11/17/21 21:26 Temperature 98.8 F Pulse Rate 104 H Respiratory 18 Rate Blood Pressure 107/68 O2 Sat by Pulse 98 Oximetry CLARKE score - Clarke Score Age > 65: (0) No Aspirin use within the Past 7 Days: (0) No 3 or more CAD Risk Factors: (0) No 2 or more Angina events in past 24 hrs: (0) No Known CAD with more than 50% Stenosis: (0) No Elevated Cardiac Markers: (0) No ST Deviation Greater than 0.5mm: (0) No CLARKE Score: 0 ED Medical Decision Making - Lab Data Result diagrams: 11/17/21 22:57 11/17/21 22:57 - EKG Data EKG shows normal: sinus rhythm, axis, intervals, QRS complexes, ST-T waves Rate: normal - EKG Data When compared to previous EKG there are: previous EKG unavailable Interpretation: normal EKG (NSR NSTEMI interp by ed attending ) - Radiology Data Radiology results: report reviewed, image reviewed CHEST 2 VIEWS INDICATION / CLINICAL INFORMATION: CHEST PAIN. COMPARISON: Yesterday. FINDINGS: SUPPORT DEVICES: None. HEART / MEDIASTINUM: The heart size and pulmonary vasculature are normal. The aorta is normal in caliber. LUNGS / PLEURA: No significant pulmonary or pleural abnormality. No pneumothorax. ADDITIONAL FINDINGS: There is mild thoracolumbar scoliosis. IMPRESSION: No acute abnormality or significant change since yesterday. Signer Name: Prakash Najera MD Signed: 11/17/2021 10:30 PM Workstation Name: [id number] Transcribed By: RT Dictated By: Prakash Najera MD Electronically Authenticated By: Prakash Najera MD Signed Date/Time: 11/17/212229 DD/ 28 TD/TT: - Medical Decision Making Chest x-ray no opacities no infiltrate noted mild scoliosis. Pain is improved with medication given in ED plan DC to home, take NSAIDs as needed as needed pain, follow-up with your doctor in 2 to 3 days. Return to emergency should symptoms worsen. Critical care attestation.: If time is entered above; I have spent that time in minutes in the direct care of this critically ill patient, excluding procedure time. ED Disposition Clinical Impression: Chest pain, unspecified Qualifiers: Chest pain type: unspecified Qualified Code(s): R07.9 - Chest pain, unspecified Disposition: 01 HOME / SELF CARE / HOMELESS Is pt being admited?: No Does the pt Need Aspirin: No Condition: Stable Instructions: Nonspecific Chest Pain, Adult Additional Instructions: Take medications as prescribed, follow-up with your doctor in 2 to 3 days. Return to emergency department should symptoms worsen. Prescriptions: Ibuprofen [Motrin 800 MG tab] 800 mg PO Q8HR PRN #30 tablet PRN Reason: Pain Referrals: DARRION SILVA MD [Staff Physician] - 3-5 Days Forms: Work/School Release Form(ED) Time of Disposition: 04:09
--- NOTE | 2021-11-18 08:10 | Electrocardiograph Report ---
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
== END 2021-11-18 04:33 | disposition home or self-care (01) ==
LOC: ED 21:19
DX: R07.89 Other chest pain (principal); E11.9 Type 2 diabetes mellitus without complications; J45.909 Unspecified asthma, uncomplicated; Z88.6 Allergy status to analgesic agent; Z88.5 Allergy status to narcotic agent; Z88.0 Allergy status to penicillin; Z88.8 Allergy status to other drugs, medicaments and biological substances; Z79.899 Other long term (current) drug therapy
CPT/HCPCS: 36415; 71046; 80053; 84484; 85025; 93005; 99284